=== PATIENT | female | born 2000 | race Caucasian/White ===

== ENCOUNTER 2021-05-12 16:36 | Emergency (ER) | payer BC ==
[~2021-05-12] VITALS: Ht 160 cm; Wt 71.0 kg
[2021-05-12 17:07] LABS: BASOPHILS # (AUTO) 0.1 10^3/uL (0.0-0.1); BASOPHILS % (AUTO) 1 % (0-10); EOSINOPHILS # (AUTO) 0.1 10^3/uL (0.0-0.3); EOSINOPHILS % (AUTO) 1 % (0-10); HEMATOCRIT 46 % (35-52); LYMPHOCYTES # (AUTO) 2.6 10^3/uL (1.0-4.0); LYMPHOCYTES % (AUTO) 25 % (12-44); MEAN CORPUSCULAR HEMOGLOBIN 34 pg (25-34); MEAN CORPUSCULAR HGB CONC 35 g/dL (32-36); MEAN CORPUSCULAR VOLUME 99 fL (80-99); MEAN PLATELET VOLUME 9.1 fL (9.0-12.2); MONOCYTES # (AUTO) 0.5 10^3/uL (0.0-1.0); MONOCYTES % (AUTO) 5 % (0-12); NEUTROPHILS # (AUTO) 7.2 10^3/uL (1.8-7.8); NEUTROPHILS % (AUTO) 68 % (42-75); PLATELET COUNT 292 10^3/uL (130-400); WHITE BLOOD COUNT 10.5 10^3/uL (4.3-11.0)
--- NOTE | 2021-05-12 17:18 | ED Head Injury ---
General Chief Complaint: Head/Cervical Problems Stated Complaint: HIT HEAD, SEIZURE Nursing Triage Note: PT CO OF FALLING DOWN STEPS APPROX 10. HITTING HEAD, +LOC AND POSSIBLE SEIZURE LIKE ACT, SHAKING FOR APPROX 30SEC. STATES HAS LAKHANI 5/10 AND BIT TOUNGE Source: patient Exam Limitations: no limitations History of Present Illness Date Seen by Provider: May 12, 2021 Time Seen by Provider: 16:56 Initial Comments Patient presents ER by private conveyance with her significant other with chief complaint that she was walking out of her friend's apartment to go get something to eat when she remembers waking up at the bottom of the stairs with bumps and bruises all over and a large knot on the front of her head. She denies any pain in her neck. She says she was out for less than 30 seconds according to her friend. She had some jerking seizure-like activity. She does not have a history of seizures. She has a sister with a history of absence seizure's. She is not having any nausea now. She has not anything for the pain. She is not on any blood thinners. Allergies and Home Medications Allergies Coded Allergies: No Known Drug Allergies (Unverified , 05/12/21) Home Medications Ondansetron 4 Mg Tab.rapdis, 4 MG PO Q6H PRN for NAUSEA/VOMITING Prescribed by: NICOLE KAUFMAN on 05/12/21 1747 Patient Home Medication List Home Medication List Reviewed: Yes Review of Systems Review of Systems Constitutional: No chills, No diaphoresis Eyes: Denies Blindness, Denies Drainage Ears, Nose, Mouth, Throat: denies ear pain, denies ear discharge Respiratory: No cough, No phlegm, No short of breath Cardiovascular: No chest pain, No palpitations Gastrointestinal: No abdominal pain, No nausea, No vomiting Genitourinary: No discharge, No dysuria, No frequency, No hesitancy : No Musculoskeletal: see HPI (Generalized bumps and discomfort but nothing significant); No back pain, No joint pain All Other Systems Reviewed Negative Unless Noted: Yes Past Sawywxa-Ogzrwl-Cbtltd Hx Patient Social History Alcohol Use: Occasionally Uses Number of Drinks Today: 0 Smoking Status: Never a Smoker Recent Infectious Disease Expo: No Recent Hopitalizations: No Ebola Symptoms: Denies Symptoms Listed Seasonal Allergies Seasonal Allergies: No Past Medical History Surgeries: Yes Adenoidectomy, Tonsillectomy Respiratory: No Cardiac: No Neurological: No Genitourinary: No Gastrointestinal: No Musculoskeletal: No Endocrine: No HEENT: No Cancer: No Psychosocial: No Integumentary: No Blood Disorders: No Physical Exam Vital Signs Vital Signs - First Documented 05/12/21 16:52 Temp 35.3 Pulse 100 Resp 18 B/P (MAP) 126/85 Capillary Refill : Height, Weight, BMI Height: '" Weight: lbs. oz. kg; 27.00 BMI Method: General Appearance: WD/WN, no apparent distress HEENT: PERRL/EOMI (Negative for raccoon eyes4 mm bilateral symmetric), normal ENT inspection (Negative for hemotympanum or newman sign), TMs normal, pharynx normal, other (Over the right eyebrow is a 2 cm wide by half centimeter tall tender hematoma without depressed skull fracture on the frontal bone.) Neck: non-tender, full range of motion, supple, normal inspection Cardiovascular: normal peripheral pulses, regular rate, rhythm Respiratory: lungs clear, normal breath sounds, no respiratory distress, no accessory muscle use Gastrointestinal: normal bowel sounds, non tender, soft Extremities: normal range of motion, non-tender, normal capillary refill Psychiatric: alert, oriented x 3 Crainal Nerves: normal hearing, normal speech, PERRL Coordination/Gait: normal gait Motor/Sensory: no motor deficit, no sensory deficit Skin: normal color, warm/dry Tima Coma Score Best Eye Response: (4) Open Spontaneously Best Verbal Response: (5) Oriented Best Motor Response: (6) Obeys Commands Tima Total: 15 Progress/Results/Core Measures Results/Orders Lab Results Laboratory Tests Test 05/12/21 16:57 Range/Units White Blood Count 10.5 4.3-11.0 10^3/uL Red Blood Count 4.67 3.80-5.11 10^6/uL Hemoglobin 16.0 11.5-16.0 g/dL Hematocrit 46 35-52 % Mean Corpuscular Volume 99 80-99 fL Mean Corpuscular Hemoglobin 34 25-34 pg Mean Corpuscular Hemoglobin Concent 35 32-36 g/dL Red Cell Distribution Width 12.8 10.0-14.5 % Platelet Count 292 130-400 10^3/uL Mean Platelet Volume 9.1 9.0-12.2 fL Immature Granulocyte % (Auto) 1 % Neutrophils (%) (Auto) 68 42-75 % Lymphocytes (%) (Auto) 25 12-44 % Monocytes (%) (Auto) 5 0-12 % Eosinophils (%) (Auto) 1 0-10 % Basophils (%) (Auto) 1 0-10 % Neutrophils # (Auto) 7.2 1.8-7.8 10^3/uL Lymphocytes # (Auto) 2.6 1.0-4.0 10^3/uL Monocytes # (Auto) 0.5 0.0-1.0 10^3/uL Eosinophils # (Auto) 0.1 0.0-0.3 10^3/uL Basophils # (Auto) 0.1 0.0-0.1 10^3/uL Immature Granulocyte # (Auto) 0.1 0.0-0.1 10^3/uL Sodium Level 139 135-145 MMOL/L Potassium Level 4.4 3.6-5.0 MMOL/L Chloride Level 103 98-107 MMOL/L Carbon Dioxide Level 22 21-32 MMOL/L Anion Gap 14 5-14 MMOL/L Blood Urea Nitrogen 12 7-18 MG/DL Creatinine 0.92 0.60-1.30 MG/DL Estimat Glomerular Filtration Rate > 60 BUN/Creatinine Ratio 13 Glucose Level 87 70-105 MG/DL Calcium Level 10.3 H 8.5-10.1 MG/DL Corrected Calcium 8.5-10.1 MG/DL Total Bilirubin 0.9 0.1-1.0 MG/DL Aspartate Amino Transf (AST/SGOT) 37 H 5-34 U/L Alanine Aminotransferase (ALT/SGPT) 38 0-55 U/L Alkaline Phosphatase 55 40-136 U/L Total Protein 9.3 H 6.4-8.2 GM/DL Albumin 5.1 H 3.2-4.5 GM/DL My Orders Orders - NICOLE KAUFMAN Ekg Tracing (05/12/21 16:58) Urine Bedside (05/12/21 16:58) Cbc With Automated Diff (05/12/21 16:58) Comprehensive Metabolic Panel (05/12/21 16:58) Vital Signs/I&O 05/12/21 16:52 Temp 35.3 Pulse 100 Resp 18 B/P (MAP) 126/85 Progress Progress Note : Time: 17:15 Progress Note Patient does not have any significant trauma just a mild hematoma over her right frontal forehead. Since the extent of injury down 10 stairs is high we did discuss doing imaging of her head. We did give her the opportunity to just do observation versus imaging after discussing the risks, benefits and alternatives to radiation. Using a clinically supported decision-making process the patient feels she would be more comfortable just going home to observe and return if things got worse. We did some counseling on concussion. Initial ECG Impression Date: May 12, 2021 Initial ECG Impression Time: 17:08 Initial ECG Rate: 98 Initial ECG Rhythm: Normal Sinus Initial ECG Intervals: Normal Initial ECG Impression: Normal Initial ECG Comparisson: No Previous ECG Available Comment Normal sinus rhythm without clinically relevant ST elevation or depression. Departure Impression Primary Impression: Head injury due to trauma Qualified Codes: S09.90XA - Unspecified injury of head, initial encounter Additional Impressions: Fall (on) (from) other stairs and steps, initial encounter Traumatic hematoma of head Qualified Codes: S00.93XA - Contusion of unspecified part of head, initial encounter Concussion Qualified Codes: S06.0X1A - Concussion with loss of consciousness of 30 minutes or less, initial encounter Disposition: 01 HOME, SELF-CARE Condition: Stable Departure-Patient Inst. Decision time for Depature: 17:40 Referrals: [facility] [place] (PCP/Family) Primary Care Physician Patient Instructions: Concussion in Adults, Head Injury Observation (DC) Add. Discharge Instructions: For the next 12 to 24 hours stay under observation with someone else. If you are having any confusion, weakness, falls or other worrisome symptoms such as intractable vomiting then please return to the ER promptly for further evaluation. You have a concussion and you can expect symptoms such as headache, irritability, nausea and imbalance on your feet. Stay at home and vegetate for the next 2 days. Drink plenty of fluids. Tylenol 1000 mg every 8 hours necessary for headache or pain. Ice pack applied to your forehead as necessary for swelling and pain. Ibuprofen 800 mg every 8 hours as necessary for pain. Ondansetron/Zofran 1 tablet every 6 hours under the tongue as necessary for nausea and/or vomiting. If you have symptoms of concussion then you have overdone it for the day and you need to take it easy go home and take a nap. If you are back up to your normal routine and not using medicines to mask your symptoms for 48 hours then you are considered concussion free. Until you are concussion free you should avoid unnecessary head injuries by wearing your seatbelt, helmets if you are riding bicycles or skateboards and do not climb ladders or engage in pugilism. All discharge instructions reviewed with patient and/or family. Voiced understanding. Scripts Ondansetron (Ondansetron Odt) 4 Mg Tab.rapdis 4 MG PO Q6H PRN for NAUSEA/VOMITING, #8 TAB 0 Refills Prov: NICOLE KAUFMAN 05/12/21 Work/School Note: Work Release Form Date Seen in the Emergency Department: May 12, 2021 Return to Work: May 16, 2021 Restrictions: No Restrictions NICOLE KAUFMAN May 12, 2021 17:18
[2021-05-12 17:21] LABS: ALBUMIN 5.1 GM/DL (3.2-4.5)
[2021-05-12 17:22] LABS: CHLORIDE 103 MMOL/L (98-107); POTASSIUM 4.4 MMOL/L (3.6-5.0); SODIUM 139 MMOL/L (135-145)
[2021-05-12 17:23] LABS: CALCIUM 10.3 MG/DL (8.5-10.1)
[2021-05-12 17:24] LABS: GLUCOSE 87 MG/DL (70-105); TOTAL PROTEIN 9.3 GM/DL (6.4-8.2)
[2021-05-12 17:25] LABS: CARBON DIOXIDE 22 MMOL/L (21-32)
[2021-05-12 17:26] LABS: BILIRUBIN,TOTAL 0.9 MG/DL (0.1-1.0)
[2021-05-12 17:27] LABS: ALKALINE PHOSPHATASE 55 U/L (40-136); CREATININE SERUM 0.92 MG/DL (0.60-1.30); GFR ESTIMATED > 60
[2021-05-12 17:28] LABS: BUN/CREATININE RATIO 13
[2021-05-12 17:30] LABS: ALANINE AMINOTRANSFERASE 38 U/L (0-55)
[2021-05-12] MEDS ORDERED: ONDA4TAB11 PO (17:47)
[2021-05-12] MEDS ORDERED: KETOROLAC 30 MG/ML VIAL IVP ONE (18:00)
== END 2021-05-12 18:00 | disposition home or self-care (01) ==
LOC: ER 16:39
DX: S06.0X1A Concussion with loss of consciousness of 30 minutes or less, initial encounter (principal); S00.83XA Contusion of other part of head, initial encounter; Z82.0 Family history of epilepsy and other diseases of the nervous system; W10.9XXA Fall (on) (from) unspecified stairs and steps, initial encounter; Y92.038 Other place in apartment as the place of occurrence of the external cause
CPT/HCPCS: 36415; 80053; 84703; 85025; 93005